=== PATIENT | female | born 1990 | race Caucasian/White ===

== ENCOUNTER 2018-04-10 15:24 | Emergency (ER) | payer OTHER ==
[~2018-04-10] VITALS: Ht 154.9 cm; Wt 72.6 kg
[2018-04-10] MEDS ORDERED: PRENATABS FA T1 EACH (15:41)
== END 2018-04-10 19:10 | disposition home or self-care (01) ==
LOC: ER 15:24 → EDBD 15:35 → ER 19:10
DX: B34.9 Viral infection, unspecified (principal); N39.0 Urinary tract infection, site not specified

== ENCOUNTER 2018-05-11 19:30 | Outpatient (CLI) | payer OTHER ==
[~2018-05-11 19:30] MED LIST: PRENATABS FA T1 EACH
== END 2018-05-11 22:25 | disposition home or self-care (01) ==
LOC: OBS/DEL 19:30
DX: O26.892 Other specified pregnancy related conditions, second trimester (principal); Z04.1 Encounter for examination and observation following transport accident; Z34.02 Encounter for supervision of normal first pregnancy, second trimester; V49.88XA Car occupant (driver) (passenger) injured in other specified transport accidents, initial encounter; Y93.89 Activity, other specified; Y92.488 Other paved roadways as the place of occurrence of the external cause; Y99.8 Other external cause status

== ENCOUNTER 2018-07-05 09:01 | Outpatient (CLI) | payer OTHER | END 2018-07-05 09:49 | disposition home or self-care (01) | LOC: NST 09:01 | DX: Z34.83 Encounter for supervision of other normal pregnancy, third trimester (principal) ==

== ENCOUNTER 2018-08-02 13:04 | Outpatient (CLI) | payer OTHER | END 2018-08-02 14:11 | disposition home or self-care (01) | LOC: NST 13:04 | DX: Z34.83 Encounter for supervision of other normal pregnancy, third trimester (principal) ==

== ENCOUNTER 2018-08-20 14:34 | Outpatient (CLI) | payer OTHER | END 2018-08-20 15:21 | disposition home or self-care (01) | LOC: NST 14:34 | DX: Z34.83 Encounter for supervision of other normal pregnancy, third trimester (principal) ==